=== PATIENT | male | born 1985 | race Caucasian/White ===

== ENCOUNTER 2019-09-08 05:37 | Emergency (ER) | payer BC ==
[~2019-09-08] VITALS: Ht 185.4 cm; Wt 89.6 kg
[2019-09-08 05:39] VITALS: BP 145/97
--- NOTE | 2019-09-08 05:53 | NUR ---
MD AT BEDSIDE TO ASSESS PT
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
== END 2019-09-08 06:15 | disposition home or self-care (01) ==
LOC: ED 06:00
DX: K02.9 Dental caries, unspecified (principal)
CPT/HCPCS: 99283